=== PATIENT | female | born 1945 | race Caucasian/White ===

== ENCOUNTER → 2024-03-05 08:56 | Outpatient (REF) | payer MEDICARE, OTHER, SELFPAY | LOC: WDC 08:56 | PROVIDERS: ATTENDING PHYSICIAN Nurse Practitioner Primary Care | DX: N63.11 Unspecified lump in the right breast, upper outer quadrant (principal) | CPT/HCPCS: 76642; 77062; 77066 ==

== ENCOUNTER → 2024-03-08 09:18 | Outpatient (REF) | payer MEDICARE, OTHER, SELFPAY ==
--- NOTE | 2024-03-08 14:50 | OID.BR.INTR ---
OID Breast Navigator - Initial
- -
Date of Contact: 03/08/24
Met with patient. Patient given written information on navigator services and support services available at [facility]. Will follow up as needed per protocol.
== END ==
LOC: WDC 09:18
PROVIDERS: ATTENDING PHYSICIAN Nurse Practitioner Primary Care
DX: N63.10 Unspecified lump in the right breast, unspecified quadrant (principal); N63.12 Unspecified lump in the right breast, upper inner quadrant
CPT/HCPCS: 88305; 19083; 77065; A4648

== ENCOUNTER → 2024-03-21 15:06 | Outpatient (REF) | payer MEDICARE, OTHER, SELFPAY | LOC: MRI 3T 15:06 | PROVIDERS: ATTENDING PHYSICIAN Surgery; FAMILY PHYSICIAN Internal Medicine Geriatric Medicine | DX: C50.411 Malignant neoplasm of upper-outer quadrant of right female breast (principal); Z17.0 Estrogen receptor positive status [ER+] | CPT/HCPCS: 77049; A9575 ==

== ENCOUNTER → 2024-04-15 11:04 | Outpatient (REF) | payer MEDICARE, OTHER, SELFPAY | LOC: WDC 11:04 | PROVIDERS: ATTENDING PHYSICIAN Surgery | DX: C50.411 Malignant neoplasm of upper-outer quadrant of right female breast (principal); N63.12 Unspecified lump in the right breast, upper inner quadrant | CPT/HCPCS: 19285; 77065; A4648 ==

== ENCOUNTER → 2024-04-16 07:31 | Outpatient (REF) | payer MEDICARE, OTHER, SELFPAY | LOC: WDC 07:31 | PROVIDERS: ATTENDING PHYSICIAN Surgery | DX: C50.411 Malignant neoplasm of upper-outer quadrant of right female breast (principal) | CPT/HCPCS: 88305; 88307; 76098; 88333 ==

== ENCOUNTER → 2025-02-27 09:43 | Outpatient (REF) | payer MEDICARE, OTHER, SELFPAY | LOC: WDC 09:43 | PROVIDERS: ATTENDING PHYSICIAN Surgery | DX: N63.10 Unspecified lump in the right breast, unspecified quadrant (principal); C50.411 Malignant neoplasm of upper-outer quadrant of right female breast; Z17.0 Estrogen receptor positive status [ER+] | CPT/HCPCS: 76642; 77062; 77066 ==

== ENCOUNTER 2025-03-21 12:24 | Emergency (ER) | payer MEDICARE, OTHER, SELFPAY ==
[2025-03-21 12:30] VITALS: BP 124/69
[2025-03-21 12:46] LABS: Hematocrit 38.0 % (37.0-47.0); Hemoglobin 13.0 g/dL (12.0-16.0); Mean Corp Hgb Conc. 34.2 g/dL (33.0-37.0); Mean Corpuscular Volume 90.7 fL (81.0-99.0); Nucleated Red Blood Cells % 0 %; Platelet Count 176 10^3/uL (130-400); Red Cell Dist. Width 13.9 % (11.5-14.5)
[2025-03-21 13:10] LABS: ALT (SGPT) 12 U/L (0-35); AST (SGOT) 22 U/L (14-36); Albumin 4.5 g/dl (3.5-5.0); Alkaline Phosphatase 39 U/L (38-126); Blood Urea Nitrogen 15 mg/dl (7-17); Calcium 9.4 mg/dl (8.4-10.2); Carbon Dioxide 25 mmol/L (22-30); Chloride 104 mmol/L (98-107); Glucose 107 mg/dl (70-99); Potassium 4.6 mmol/L (3.5-5.1); Sodium 134 mmol/L (135-145); Total Protein 6.9 g/dl (6.3-8.2); eGFR > 60.00
[2025-03-21 13:17] LABS: Lipase 204 U/L (23-300)
--- NOTE | 2025-03-21 15:34 | ED.GENMED ---
History of Present Illness
General
Chief Complaint: Abdominal Pain
Source: patient and significant other
Exam Limitations: none
Time Seen by Provider: 03/21/25 13:34
History of Present Illness
History of Present Illness:
Patient is a 79-year-old female with past medical history of hypothyroidism, known right inguinal hernia, who presents to the emergency department from home accompanied by her for concerns of a possible strangulated or incarcerated inguinal
hernia. Patient reports that she was at her exercise class this morning. She reports that she felt the right inguinal hernia pop out which it does from time to time. She reports that she typically lays down and pushes it back in. She reports
that she attempted to push it back in but did not feel or hear a pop like she normally does. She states that she thought it was better that when she tried to continue her exercise class. Patient reports that she realized that it still was not back
in. She states that she could feel the lump there and also gets strong vaginal pressure when it is out. She reports that she felt a strong vaginal pressure. She reports that she went home and tried to push it back in but was unsuccessful
prompting her emergency department visit. Patient states that she did have a normal bowel movement prior to coming to the emergency department. Patient denies fevers, chills, chest pain, shortness of breath, nausea, vomiting. Patient denies any
urinary symptoms. Patient states that while she was in the waiting room, she felt the hernia pop back in. She reports that her vaginal discomfort has resolved. She states that she feels that the hernia is completely reduced at this time.
Past History
Past History
ED Past Medical History: None, Hypothyroidism and Other (Hernia)
ED Past Surgical History: Cholecystectomy
Social History
Tobacco: Non-smoker
Alcohol: None
Personal:
Living: with family
Review of Systems
Review of Systems
Allergies reviewed?: Yes
All Other Systems: ROS reviewed and negative except as documented in HPI and ROS
Constitutional: Reports no symptoms
EENT: Reports no symptoms
Respiratory: Reports no symptoms
Cardiac: Reports no symptoms
ABD/GI: Reports no symptoms
: Reports no symptoms
Musculoskeletal: Reports no symptoms
Skin: Reports no symptoms
Neurological: Reports no symptoms
Endocrine: Reports no symptoms
Hematologic/Lymphatic: Reports no symptoms
Psychiatric: Reports no symptoms
Phy Exam
General Physical Exam
General Presentation: well appearing and no apparent distress
General Skin: warm and dry
General Habitus: normal
General Mental: alert
General Hydration: appears well hydrated
ENT Exam
ENT Exam: EOMI, pharynx normal, neck supple and normocephalic
Eye Exam
Eye Exam: PERRL, cornea clear and conjunctiva normal
Cardiovascular Exam
Cardiovascular Exam: regular rate/rhythm, no edema, no murmur and normal peripheral pulses
Pulmonary Exam
Pulmonary Exam: lungs clear, no respiratory distress, no rales, no crackles, no rhonchi, no stridor, no wheezing and no cough
Gastrointestinal Exam
Gastrointestinal Exam: normal bowel sounds, non tender, soft, no organomegaly, no pulsatile mass, non distended and no masses
Neurological Exam
Neurological Exam: alert, oriented x3, no motor deficits and speech normal
Musculoskeletal Exam
Musculoskeletal Exam: full ROM and no edema
Skin Exam
Skin Exam: normal color, warm/dry, no rash and no petechia
Psychiatric Exam
Psychiatric Exam: normal mood/affect
Course
Orders/Labs/Results
Orders:
Orders
03/21/25 12:37
Complete Blood Count/With Diff Urgent
Comprehensive Metabolic Panel Urgent
Lipase Urgent
Abnormal Lab Results
03/21/25
12:37
RBC 4.19 L 10^6/uL
(4.20-5.40)
Sodium 134 L mmol/L
(135-145)
Glucose 107 H mg/dl
(70-99)
03/21/25 12:37
03/21/25 12:37
Vital Signs
Initial and Last Documented VS:
Initial Vital Signs
Temp Pulse Resp BP Pulse Ox
97.7 F 60 16 124/69 100
03/21/25 12:30 03/21/25 12:30 03/21/25 12:30 03/21/25 12:30 03/21/25 12:30
Last Documented Vital Signs
Temp Pulse Resp BP Pulse Ox
97.7 F 60 16 124/69 100
03/21/25 12:30 03/21/25 12:30 03/21/25 12:30 03/21/25 12:30 03/21/25 15:39
*Pulse Oximetry
SaO2: 100
Oxygen Mode of Delivery: Room air
Patient hypoxic: no
*Critical Care Note
Total Time (30-74mins, 75-104mins- exclusive of procedures): Not Applicable
Update Note
Update Note:
79-year-old female with known right inguinal hernia presents to the emergency department for concerns that her inguinal hernia was unable to be reduced at home. However, patient reports that she believes it was reduced while she was sitting in the
waiting room. She denies that there is no lump there now. She denies any abdominal pain, nausea, vomiting, abdominal or vaginal pressure. On arrival, patient's vital signs are stable, she is afebrile. On exam, patient is very well-appearing, she
is in no acute distress, she has a completely benign abdominal exam without appreciable hernia at this time. Labs were obtained while the patient was in the waiting room and are nonactionable. At this time the patient is requesting discharge to
home. I feel that this is appropriate. Patient states that she has seen a surgeon in the past but elected not to have surgery performed. She states that she will rethink this decision. Patient safe for discharge to home with strict return
precautions. She and her expressed understanding of the plan and agreed.
ED Attending Note
-
Portions of this chart may have been created with voice recognition software.� Occasional wrong word or��sound alike� substitutions may have occurred due to the inherent limitations of voice recognition software.
Discharge Plan
Departure
Patient Disposition: Home (Routine Discharge)
Date of Disposition: 03/21/25
Time of Disposition: 13:48
Patient with high blood pressure during this ER visit?: No
Condition: Good
Covid-19: Not Applicable
Discharge Problem:
Hernia, inguinal, right
Instructions: Groin hernias
Prescriptions:
No Action
valacyclovir 500 MG tablet
1,000 mg PO TID Qty: 42 0RF
Referrals:
Katie Carrion CRNP [Family Provider, Internal Medicine]
Activity Restrictions/Additional Instructions:
You were seen in the emergency department for evaluation of a hernia to your right groin. While you were in the waiting room the hernia went back in and you do not require any further treatment today. It is safe for you to be discharged home.
Please follow-up with general surgery if you wish to have your hernia repaired. Please return to the emergency department if you develop increasing pain, swelling, vomiting, or for any other worsening or concerning symptoms.
Interventions
Interventions:
*Nursing Disposition Last Done: 03/21/25 14:05
JK-Uhztzo-Cnaiihfyel Assessment Last Done: 03/21/25 14:05
Discharge Date and Time
Discharge Date/Time: 03/21/25 14:06
Print Language: GEORGIAN
== END 2025-03-21 14:06 | disposition home or self-care (01) ==
LOC: EMR 12:24
PROVIDERS: Emergency Medicine; EMERGENCY PHYSICIAN Emergency Medicine; FAMILY PHYSICIAN Nurse Practitioner Primary Care
DX: K40.90 Unilateral inguinal hernia, without obstruction or gangrene, not specified as recurrent (principal); E03.9 Hypothyroidism, unspecified; Z90.49 Acquired absence of other specified parts of digestive tract
CPT/HCPCS: 99283; 80053; 83690; 85025

== ENCOUNTER → 2025-04-14 13:36 | Outpatient (REF) | payer MEDICARE, OTHER, SELFPAY | LOC: RAD 13:36 | PROVIDERS: ATTENDING PHYSICIAN Nurse Practitioner Primary Care | DX: N81.10 Cystocele, unspecified (principal); K40.20 Bilateral inguinal hernia, without obstruction or gangrene, not specified as recurrent; C50.411 Malignant neoplasm of upper-outer quadrant of right female breast; R14.0 Abdominal distension (gaseous) | CPT/HCPCS: 74177; Q9967 ==

== ENCOUNTER → 2025-04-18 13:54 | Outpatient (REF) | payer MEDICARE, OTHER, SELFPAY | LOC: RAD 13:54 | PROVIDERS: ATTENDING PHYSICIAN Nurse Practitioner Primary Care | DX: L53.9 Erythematous condition, unspecified (principal); R23.0 Cyanosis | CPT/HCPCS: 93922; 93925 ==

== ENCOUNTER → 2025-07-02 15:27 | Outpatient (REF) | payer MEDICARE, OTHER, SELFPAY | LOC: RAD 15:27 | PROVIDERS: ATTENDING PHYSICIAN Nurse Practitioner Family; FAMILY PHYSICIAN Nurse Practitioner Primary Care | DX: R10.84 Generalized abdominal pain (principal); E03.9 Hypothyroidism, unspecified; F41.9 Anxiety disorder, unspecified; M54.50 Low back pain, unspecified | CPT/HCPCS: 72110; 74018 ==